=== PATIENT | female | born 1955 | race Caucasian/White ===

== ENCOUNTER 2017-02-11 07:10 | Day surgery (SDC) | payer OTHER ==
[~2017-02-11] VITALS: Ht 162.6 cm; Wt 61.3 kg
[~2017-02-11 07:10] MED LIST: ALEVE220 M2 PO; CENTRUM SILVER1 EAC4 PO
[2017-02-11 08:56] VITALS: BP 134/81
[2017-02-11 12:18] VITALS: BP 135/94
== END 2017-02-11 12:35 | disposition home or self-care (01) ==
LOC: SDC 07:10
DX: H33.311 Horseshoe tear of retina without detachment, right eye (principal); H43.11 Vitreous hemorrhage, right eye; J44.9 Chronic obstructive pulmonary disease, unspecified; Z87.891 Personal history of nicotine dependence
CPT/HCPCS: J0690; J0713; J2250